=== PATIENT | female | born 1995 | race Caucasian/White ===

== ENCOUNTER 2021-07-03 08:35 | Emergency (ER) | payer BC ==
[2021-07-03 08:55] VITALS: TEMP 98.6; BMI 23.4
[2021-07-03 09:59] LABS: ALBUMIN 4.1 g/dl (3.4-5.0); CALCIUM 8.8 mg/dl (8.5-10); CREATININE 0.7 mg/dl (0.55-1.3); TOT PROT 6.9 g/dl (6.4-8.2)
[2021-07-03] MEDS ORDERED: POTASSIUM CHLORIDE TABS 20 MEQ TABLET.ER (FP) PO ONE ×2 (10:25→10:31)
[2021-07-03 10:54] VITALS: BP 117/54; PULSE 60
[2021-07-03 11:09] LABS: MAGNESIUM 1.8 mg/dL (1.8-2.4); PHOSPHOROUS 4.1 mg/dl (2.5-4.9)
[2021-07-03 11:14] LABS: BASO % 0.5 % (0-2.0); EOS % 1.7 % (0-4.5); HEMATOCRIT 37.5 % (32.4-45.2); HEMOGLOBIN 12.6 GM/dL (10.7-15.3); LYMPH % 40.8 % (8-40); MCH 29.5 pg (25.7-33.7); MCHC 33.5 g/dl (32.0-36.0); MEAN CELL VOLUME 88.3 fl (80-96); MEAN PLT VOLUME 8.6 fl (7.5-11.1); MONO % 7.5 % (3.8-10.2); NEUT % 49.5 % (42.8-82.8); PLATELET COUNT 272 10^3/uL (134-434); RBC 4.25 M/mm3 (3.60-5.2); RDW 13.1 % (11.6-15.6); WHITE BLOOD COUNT 6.7 K/mm3 (4.0-10.0)
== END 2021-07-03 12:30 | disposition home or self-care (01) ==
LOC: FER 08:35
DX: R07.89 Other chest pain (principal)
CPT/HCPCS: 36415; 80053; 83735; 84100; 84703; 85025; 93005; 99284-25